=== PATIENT | male | born 1965 | race Caucasian/White ===

== ENCOUNTER → 2017-11-15 | Outpatient (CLI) | payer OTHER ==
[~2017-11-15] MED LIST: ALBUTEROL 0.083% (NEB) 2.5 MG/3 ML AMP
[2017-11-15 09:47] LABS: AADO2 Arterial 15.9 mmHg (7.0-24.0); Allen Test ACCEPTAB; Arterial Base Excess -5.2 mmol/L (-3.0-3); Arterial Blood Gas Oxygen Sat 97.4 mmHG (95.0-98.0); Arterial COHb 0.3 % (0.0-3.0); Arterial Fraction of Oxyhgb 96.8 % (93.0-99.0); Arterial HCO3 17.8 mmol/L (22.0-26.0); Arterial MetHb 0.3 % (0.0-1.5); Arterial Total Hemglobin 10.1 g/dl (12.0-18.0); Arterial pCO2 26.6 mmhg (35-45); MODE ROOM AIR; Site Right Radial
== END | disposition home or self-care (01) ==
LOC: PUL 09:03
DX: K70.30 Alcoholic cirrhosis of liver without ascites (principal); Z01.818 Encounter for other preprocedural examination
CPT/HCPCS: 36600; 82803; 94060; 94726; 94729; 94761